=== PATIENT | male | born 1940 ===

== ENCOUNTER 2019-06-03 15:43 | Inpatient (IN) | payer MEDICARE, BC ==
[~2019-06-03] VITALS: Ht 167.6 cm; Wt 48.7 kg
[2019-06-03] MEDS ORDERED: ATORVASTATIN CA80 MG PO (16:27)
[2019-06-03] MEDS ORDERED: ASPIRIN E.C. 8181 MG (16:27)
[2019-06-03] MEDS ORDERED: CLOPIDOGREL PO (16:27)
[2019-06-03] MEDS ORDERED: ISMO 20MG20 MG (16:28)
[2019-06-03] MEDS ORDERED: NITROGLYCERIN0.4 M1 SL (16:28)
[2019-06-03] MEDS ORDERED: REMERON15 MG PO (16:28)
[2019-06-03] MEDS ORDERED: COLESTID 1GM1 G PO (16:29)
[2019-06-03] MEDS ORDERED: ZOFRAN4 M2 PO (16:30)
[2019-06-03] MEDS ORDERED: ATIVAN0.5 MG PO (16:30)
[2019-06-03] MEDS ORDERED: ZESTRIL2.5 M1 PO (17:36)
[2019-06-03 18:43] VITALS: BP 130/72
[2019-06-03 21:47] VITALS: BP 113/66
[2019-06-04 01:31] VITALS: BP 110/66
[2019-06-04 06:21] VITALS: BP 92/54
[2019-06-04 09:03] VITALS: BP 139/77
[2019-06-04 16:13] VITALS: BP 100/61
[2019-06-05 05:53] VITALS: BP 121/72
[2019-06-05 18:00] VITALS: BP 129/51
[2019-06-06 05:41] VITALS: BP 132/77
[2019-06-06 09:45] LABS: ALBUMIN 3.4 g/dL (3.4-4.8); POTASSIUM 4.1 mmol/L (3.5-5.1)
[2019-06-06 09:46] LABS: CALCIUM 9.8 mg/dL (8.3-10.5)
[2019-06-06 09:47] LABS: TOTAL PROTEIN 5.9 g/dL (6.2-8.1)
[2019-06-06 09:49] LABS: TOTAL BILIRUBIN 0.4 mg/dL (0.2-1.2)
[2019-06-06 10:08] LABS: HEMATOCRIT 42.5 % (42.0-52.0); HEMOGLOBIN 13.7 g/dL (13.5-18.0); MEAN CELL VOLUME 96 fl (78-100); MEAN CORPUSCULAR HEMOGLOBIN 31 pg (27-31); MEAN CORPUSCULAR HGB CONC 32 g/dL (33-37); MEAN PLATELET VOLUME 9.4 fl (7.4-10.4); PLATELET COUNT 297 K/mm3 (130-400); RED BLOOD COUNT 4.42 M/mm3 (4.20-5.60); RED CELL DISTRIBUTION WIDTH 13.5 % (11.5-14.5); WHITE BLOOD COUNT 5.5 K/mm3 (4.8-10.8)
[2019-06-06 11:13] LABS: LYMPHOCYTE 18 % (20-51); MONOCYTE 17 % (3-10); NEUTROPHILS 63 % (42-75)
[2019-06-06 12:54] LABS: PH-URINE 5.5 (5.0 - 8.0); URINE APPEARANCE CLEAR; URINE BILIRUBIN NEGATIVE (NEGATIVE); URINE BLOOD NEGATIVE (NEGATIVE); URINE COLOR YELLOW; URINE GLUCOSE NEGATIVE (NEGATIVE); URINE KETONE NEGATIVE (NEGATIVE); URINE LEUKOCYTE ESTERASE NEGATIVE (NEGATIVE); URINE MUCUS PRESENT (NOT PRESENT); URINE NITRATE NEGATIVE (NEGATIVE); URINE PROTEIN(semi-quant) 1+ mg/dL (NEGATIVE); URINE UROBILINOGEN NORMAL (NORMAL)
[2019-06-06 17:29] VITALS: BP 137/57
[2019-06-07 06:03] VITALS: BP 132/72
[2019-06-07 18:07] VITALS: BP 101/47
[2019-06-08 05:55] VITALS: BP 113/72
[2019-06-08 06:03] LABS: HEMATOCRIT 41.6 % (42.0-52.0); HEMOGLOBIN 13.8 g/dL (13.5-18.0); MEAN CELL VOLUME 95 fl (78-100); MEAN CORPUSCULAR HEMOGLOBIN 32 pg (27-31); MEAN CORPUSCULAR HGB CONC 33 g/dL (33-37); MEAN PLATELET VOLUME 9.2 fl (7.4-10.4); PLATELET COUNT 312 K/mm3 (130-400); RED BLOOD COUNT 4.37 M/mm3 (4.20-5.60); RED CELL DISTRIBUTION WIDTH 13.6 % (11.5-14.5)
[2019-06-08 06:11] LABS: POTASSIUM 4.5 mmol/L (3.5-5.1)
[2019-06-08 06:12] LABS: CALCIUM 9.3 mg/dL (8.3-10.5)
[2019-06-08 06:39] LABS: LYMPHOCYTE 16 % (20-51); MONOCYTE 15 % (3-10); NEUTROPHILS 66 % (42-75)
[2019-06-08 08:32] VITALS: BP 113/73
[2019-06-08 18:15] VITALS: BP 125/69
[2019-06-09 06:00] VITALS: BP 112/76
[2019-06-09 18:01] VITALS: BP 96/64
[2019-06-10 06:13] VITALS: BP 109/63
[2019-06-10 17:21] VITALS: BP 96/58
[2019-06-11 06:07] VITALS: BP 100/64
[2019-06-11 17:12] VITALS: BP 95/54
[2019-06-12 06:00] VITALS: BP 143/80
[2019-06-12 16:28] VITALS: BP 91/47
[2019-06-13 05:56] VITALS: BP 98/56
[2019-06-13 17:39] VITALS: BP 109/59
[2019-06-14 06:19] VITALS: BP 110/79
[2019-06-14 12:54] LABS: EOS # 0.2 (0.04-0.40); EOS % 4.4 % (0.0-4.0); HEMATOCRIT 39.1 % (42.0-52.0); HEMOGLOBIN 12.8 g/dL (13.5-18.0); LYMPH# 1.2 (1.50-4.00); MEAN CELL VOLUME 95 fl (78-100); MEAN CORPUSCULAR HEMOGLOBIN 31 pg (27-31); MEAN CORPUSCULAR HGB CONC 33 g/dL (33-37); MEAN PLATELET VOLUME 8.9 fl (7.4-10.4); MONO # 0.5 (0.20-0.80); NEU # 2.8 (1.40-6.50); PLATELET COUNT 323 K/mm3 (130-400); RED CELL DISTRIBUTION WIDTH 13.2 % (11.5-14.5); WHITE BLOOD COUNT 4.8 K/mm3 (4.8-10.8)
[2019-06-14 13:02] LABS: POTASSIUM 4.6 mmol/L (3.5-5.1)
[2019-06-14 13:03] LABS: CALCIUM 8.6 mg/dL (8.3-10.5)
[2019-06-14 17:10] VITALS: BP 106/61
[2019-06-15 05:21] VITALS: BP 149/53
[2019-06-15 16:25] VITALS: BP 104/54; BP 169/76
[2019-06-16 05:56] VITALS: BP 121/71
[2019-06-16 17:31] VITALS: BP 93/54
[2019-06-17 05:23] VITALS: BP 127/69
[2019-06-17 17:09] VITALS: BP 104/66
[2019-06-18 06:01] VITALS: BP 101/66
[2019-06-18 16:04] VITALS: BP 91/56
[2019-06-18 23:10] VITALS: BP 133/77
[2019-06-18 23:35] VITALS: BP 122/66
[2019-06-19 05:45] VITALS: BP 124/70
[2019-06-19 17:47] VITALS: BP 111/67
[2019-06-20 05:53] VITALS: BP 132/73
[2019-06-20 06:40] VITALS: BP 124/72
[2019-06-20 15:57] VITALS: BP 100/58
[2019-06-21 05:57] VITALS: BP 126/73
[2019-06-21 17:56] VITALS: BP 105/61
[2019-06-21 17:57] VITALS: BP 105/61
[2019-06-22 06:00] VITALS: BP 158/80
[2019-06-22 17:42] VITALS: BP 108/65
[2019-06-22 18:13] VITALS: BP 102/68
[2019-06-23 05:52] VITALS: BP 125/73
[2019-06-23 10:18] LABS: EOS # 0.2 (0.04-0.40); EOS % 3.5 % (0.0-4.0); HEMATOCRIT 38.8 % (42.0-52.0); HEMOGLOBIN 12.7 g/dL (13.5-18.0); LYMPH# 1.3 (1.50-4.00); MEAN CELL VOLUME 93 fl (78-100); MEAN CORPUSCULAR HEMOGLOBIN 30 pg (27-31); MEAN CORPUSCULAR HGB CONC 33 g/dL (33-37); MEAN PLATELET VOLUME 9.1 fl (7.4-10.4); MONO # 0.7 (0.20-0.80); NEU # 3.5 (1.40-6.50); PLATELET COUNT 263 K/mm3 (130-400); RED BLOOD COUNT 4.18 M/mm3 (4.20-5.60); RED CELL DISTRIBUTION WIDTH 13.1 % (11.5-14.5); WHITE BLOOD COUNT 5.7 K/mm3 (4.8-10.8)
[2019-06-23 10:41] VITALS: BP 89/54
[2019-06-23 10:45] LABS: ALBUMIN 3.5 g/dL (3.4-4.8); POTASSIUM 4.5 mmol/L (3.5-5.1); SODIUM 137 mmol/L (136-145)
[2019-06-23 10:46] LABS: CALCIUM 8.8 mg/dL (8.3-10.5)
[2019-06-23 10:47] LABS: GLUCOSE 104 mg/dL (75-110)
[2019-06-23 10:49] LABS: CARBON DIOXIDE 21 mmol/L (23-31); TOTAL BILIRUBIN 0.4 mg/dL (0.2-1.2)
[2019-06-23 10:53] LABS: AST-SGOT 26 U/L (5-34)
[2019-06-23 10:54] LABS: ALT/SGPT 43 U/L (0-55)
[2019-06-23 11:00] VITALS: BP 87/52
[2019-06-23 11:01] LABS: TROPONIN-I < 0.03 ng/mL (<0.030)
[2019-06-23 11:45] VITALS: BP 111/66
[2019-06-23 12:22] LABS: URINE APPEARANCE CLEAR; URINE BILIRUBIN NEGATIVE (NEGATIVE); URINE BLOOD NEGATIVE (NEGATIVE); URINE COLOR YELLOW; URINE GLUCOSE NEGATIVE (NEGATIVE); URINE KETONE NEGATIVE (NEGATIVE); URINE LEUKOCYTE ESTERASE NEGATIVE (NEGATIVE); URINE MUCUS PRESENT (NOT PRESENT); URINE NITRATE NEGATIVE (NEGATIVE); URINE PROTEIN(semi-quant) NEGATIVE (NEGATIVE); URINE UROBILINOGEN NORMAL (NORMAL); URINE WBC 0 /hpf (0-3)
[2019-06-23 13:05] VITALS: BP 111/66
[2019-06-25] MEDS ORDERED: ELIQUIS2.5 MG PO (16:54)
[2019-06-25] MEDS ORDERED: PACERONE200 MG PO (17:01)
[2019-06-25] MEDS ORDERED: MEGESTROL ACETA20 M1 PO (17:03)
== END 2019-06-23 14:30 | disposition short-term general hospital (02) | DRG 947 ==
LOC: MED/SURG 15:43
PROVIDERS: Nurse Practitioner Family; Physician Assistant; ADMIT Nurse Practitioner
DX: R53.81 Other malaise (principal); J18.9 Pneumonia, unspecified organism; E43 Unspecified severe protein-calorie malnutrition; Z68.1 Body mass index [BMI] 19.9 or less, adult; I48.92 Unspecified atrial flutter; I95.9 Hypotension, unspecified; I10 Essential (primary) hypertension; R73.9 Hyperglycemia, unspecified; I25.2 Old myocardial infarction; I25.10 Atherosclerotic heart disease of native coronary artery without angina pectoris; I08.1 Rheumatic disorders of both mitral and tricuspid valves; K21.9 Gastro-esophageal reflux disease without esophagitis; H60.92 Unspecified otitis externa, left ear; F17.210 Nicotine dependence, cigarettes, uncomplicated; Z79.82 Long term (current) use of aspirin; Z88.0 Allergy status to penicillin; Z88.2 Allergy status to sulfonamides; Z88.1 Allergy status to other antibiotic agents
CPT/HCPCS: J7030

== ENCOUNTER 2019-09-13 13:00 | Inpatient (IN) | payer MEDICARE, BC ==
[~2019-09-13] VITALS: Ht 165.1 cm; Wt 55.7 kg
[~2019-09-13 13:00] MED LIST: ASPIRIN E.C. 8181 MG; ATIVAN0.5 MG PO; ATORVASTATIN CA80 MG PO; CLOPIDOGREL PO; COLESTID 1GM1 G PO; ELIQUIS2.5 MG PO; ISMO 20MG20 MG; MEGESTROL ACETA20 M1 PO; NITROGLYCERIN0.4 M1 SL; PACERONE200 MG PO; REMERON15 MG PO; ZESTRIL2.5 M1 PO; ZOFRAN4 M2 PO
[2019-09-13 13:56] VITALS: BP 124/73
[2019-09-13] MEDS ORDERED: TYLENOL EXTRA500 M2 PO (13:57)
[2019-09-13] MEDS ORDERED: ALBUTEROL2.5 MG/3 M IH (13:59)
[2019-09-13] MEDS ORDERED: CORDARONE200 MG/TAB PO (14:02)
[2019-09-13] MEDS ORDERED: VENELEX OINTMEN60 GM TP (14:11)
[2019-09-13] MEDS ORDERED: DULCOLAX5 M1 PO (14:12)
[2019-09-13] MEDS ORDERED: CLOPIDOGREL PO (14:13)
[2019-09-13] MEDS ORDERED: FERROUS SU220 MG/53 PEG (14:16)
[2019-09-13] MEDS ORDERED: EXPECTORAN100 MG/51 PEG (14:19)
[2019-09-13] MEDS ORDERED: LIDODERM1 EACH TP (14:44)
[2019-09-13] MEDS ORDERED: LOPERAMIDE1 MG/7.51 PEG (14:51)
[2019-09-13] MEDS ORDERED: MEGESTROL AC40 MG/ML PEG (14:59)
[2019-09-13] MEDS ORDERED: REGLAN5 M1 PEG (15:01)
[2019-09-13] MEDS ORDERED: LOPRESSOR 225 MG/TAB PEG (15:03)
[2019-09-13] MEDS ORDERED: NYSTATIN 100MU/M1 ML PO (15:04)
[2019-09-13] MEDS ORDERED: ZOFRAN ODT4 MG PO (15:10)
[2019-09-13] MEDS ORDERED: ZOLOFT 50MG50 MG PEG (15:14)
[2019-09-13] MEDS ORDERED: ULTRAM50 M1 PEG (15:15)
[2019-09-13] MEDS ORDERED: COLACE100 M1 PEG (15:16)
[2019-09-13] MEDS ORDERED: PROTONIX40 MG/Pack PEG (15:17)
[2019-09-13] MEDS ORDERED: SENNA8.6 M1 PO (15:17)
[2019-09-13] MEDS ORDERED: INCRUSE EL62.5 MCG/A IH (15:18)
[2019-09-13 15:24] LABS: MEAN CELL VOLUME 99 fl (78-100); MEAN CORPUSCULAR HEMOGLOBIN 30 pg (27-31); MEAN CORPUSCULAR HGB CONC 30 g/dL (33-37); MEAN PLATELET VOLUME 8.3 fl (7.4-10.4); RED BLOOD COUNT 2.37 M/mm3 (4.20-5.60); WHITE BLOOD COUNT 8.2 K/mm3 (4.8-10.8)
[2019-09-13 15:34] LABS: HEMATOCRIT 23.4 % (42.0-52.0); PLATELET COUNT 790 K/mm3 (130-400)
[2019-09-13 15:35] LABS: ALBUMIN 3.1 g/dL (3.4-4.8)
[2019-09-13 15:36] LABS: POTASSIUM 4.5 mmol/L (3.5-5.1)
[2019-09-13 15:38] LABS: TOTAL PROTEIN 5.4 g/dL (6.2-8.1)
[2019-09-13 15:40] LABS: TOTAL BILIRUBIN 0.2 mg/dL (0.2-1.2)
[2019-09-13 15:44] LABS: BAND 3 % (0-10); LYMPHOCYTE 15 % (20-51); MONOCYTE 14 % (3-10); NEUTROPHILS 56 % (42-75)
[2019-09-13 18:09] VITALS: BP 104/63
[2019-09-13 18:54] LABS: PH-URINE 5.5 (5.0 - 8.0); URINE APPEARANCE CLEAR; URINE BILIRUBIN NEGATIVE (NEGATIVE); URINE BLOOD NEGATIVE (NEGATIVE); URINE COLOR YELLOW; URINE GLUCOSE NEGATIVE (NEGATIVE); URINE KETONE NEGATIVE (NEGATIVE); URINE LEUKOCYTE ESTERASE NEGATIVE (NEGATIVE); URINE NITRATE NEGATIVE (NEGATIVE); URINE PROTEIN(semi-quant) TRACE mg/dL (NEGATIVE); URINE UROBILINOGEN NORMAL (NORMAL)
[2019-09-14] VITALS (10 sets, daily range): BP systolic 97–127; BP diastolic 40–73
[2019-09-14 07:59] LABS: HEMATOCRIT 22.9 % (42.0-52.0); HEMOGLOBIN 6.8 g/dL (13.5-18.0)
[2019-09-14 22:22] LABS: MAGNESIUM 2.06 mg/dL (1.60-2.60)
== END 2019-09-14 18:24 | disposition short-term general hospital (02) | DRG 948 ==
LOC: MED/SURG 13:00
PROVIDERS: Physician Assistant; ADMIT Nurse Practitioner Primary Care
DX: R53.81 Other malaise (principal); E46 Unspecified protein-calorie malnutrition; I25.719 Atherosclerosis of autologous vein coronary artery bypass graft(s) with unspecified angina pectoris; K92.2 Gastrointestinal hemorrhage, unspecified; I48.91 Unspecified atrial fibrillation; R13.10 Dysphagia, unspecified; K21.9 Gastro-esophageal reflux disease without esophagitis; G47.33 Obstructive sleep apnea (adult) (pediatric); D64.9 Anemia, unspecified; I25.2 Old myocardial infarction; Z68.23 Body mass index [BMI] 23.0-23.9, adult; Z79.82 Long term (current) use of aspirin; Z79.01 Long term (current) use of anticoagulants; Z79.02 Long term (current) use of antithrombotics/antiplatelets; Z95.1 Presence of aortocoronary bypass graft; Z93.1 Gastrostomy status; Z87.891 Personal history of nicotine dependence; Z88.2 Allergy status to sulfonamides; Z88.0 Allergy status to penicillin; Z88.1 Allergy status to other antibiotic agents
CPT/HCPCS: C9113; J1071; J1940

== ENCOUNTER 2019-09-14 17:09 | Inpatient (IN) | payer MEDICARE, BC ==
[2019-09-14] VITALS (7 sets, daily range): BP systolic 129–136; BP diastolic 70–80
[~2019-09-14] VITALS: Ht 154.9 cm; Wt 52.8 kg
[~2019-09-14 17:09] MED LIST changes: +ALBUTEROL2.5 MG/3 M IH; +COLACE100 M1 PEG; +CORDARONE200 MG/TAB PO; +DULCOLAX5 M1 PO; +EXPECTORAN100 MG/51 PEG; +FERROUS SU220 MG/53 PEG; +INCRUSE EL62.5 MCG/A IH; +LIDODERM1 EACH TP; +LOPERAMIDE1 MG/7.51 PEG; +LOPRESSOR 225 MG/TAB PEG; +MEGESTROL AC40 MG/ML PEG; +NYSTATIN 100MU/M1 ML PO; +PROTONIX40 MG/Pack PEG; +REGLAN5 M1 PEG; +SENNA8.6 M1 PO; +TYLENOL EXTRA500 M2 PO; +ULTRAM50 M1 PEG; +VENELEX OINTMEN60 GM TP; +ZOFRAN ODT4 MG PO; +ZOLOFT 50MG50 MG PEG
[2019-09-14 22:08] LABS: HEMOGLOBIN 10.7 g/dL (13.5-18.0)
[2019-09-15 02:44] VITALS: BP 122/73
[2019-09-15 05:43] VITALS: BP 122/71
[2019-09-15 09:53] VITALS: BP 144/79
[2019-09-15 14:02] VITALS: BP 99/64
[2019-09-15 17:02] VITALS: BP 125/74
[2019-09-15 22:37] VITALS: BP 104/66
[2019-09-16 01:35] VITALS: BP 131/78
[2019-09-16 05:50] VITALS: BP 144/75
[2019-09-16 07:53] LABS: HEMATOCRIT 34.6 % (42.0-52.0); HEMOGLOBIN 10.8 g/dL (13.5-18.0); MEAN CELL VOLUME 98 fl (78-100); MEAN CORPUSCULAR HEMOGLOBIN 31 pg (27-31); MEAN CORPUSCULAR HGB CONC 31 g/dL (33-37); MEAN PLATELET VOLUME 8.6 fl (7.4-10.4); PLATELET COUNT 420 K/mm3 (130-400); RED BLOOD COUNT 3.53 M/mm3 (4.20-5.60); WHITE BLOOD COUNT 7.8 K/mm3 (4.8-10.8)
[2019-09-16 08:06] LABS: CALCIUM 7.7 mg/dL (8.3-10.5)
[2019-09-16 08:58] LABS: LYMPHOCYTE 14 % (20-51); MONOCYTE 12 % (3-10); NEUTROPHILS 71 % (42-75)
[2019-09-16 10:00] VITALS: BP 105/65
[2019-09-16 10:26] LABS: URINE APPEARANCE CLEAR; URINE COLOR YELLOW
[2019-09-16 10:27] LABS: PH-URINE 8.5 (5.0 - 8.0); URINE BILIRUBIN NEGATIVE (NEGATIVE); URINE BLOOD 50 ery/uL (NEGATIVE); URINE GLUCOSE NEGATIVE (NEGATIVE); URINE KETONE NEGATIVE (NEGATIVE); URINE LEUKOCYTE ESTERASE NEGATIVE (NEGATIVE); URINE NITRATE NEGATIVE (NEGATIVE); URINE PROTEIN(semi-quant) NEGATIVE (NEGATIVE); URINE UROBILINOGEN 1 mg/dL (NORMAL); URINE WBC 0-1 /hpf (0-3)
[2019-09-16 14:00] VITALS: BP 95/58
[2019-09-16 17:21] VITALS: BP 103/65
[2019-09-16 22:02] VITALS: BP 111/73
[2019-09-17] VITALS (8 sets, daily range): BP systolic 80–116; BP diastolic 7–75
[2019-09-18] VITALS (7 sets, daily range): BP systolic 92–143; BP diastolic 58–82
[2019-09-18 07:47] LABS: EOS # 0.4 (0.04-0.40); HEMATOCRIT 37.9 % (42.0-52.0); HEMOGLOBIN 11.5 g/dL (13.5-18.0); LYMPH# 0.8 (1.50-4.00); MEAN CELL VOLUME 100 fl (78-100); MEAN CORPUSCULAR HEMOGLOBIN 30 pg (27-31); MEAN CORPUSCULAR HGB CONC 30 g/dL (33-37); MEAN PLATELET VOLUME 8.4 fl (7.4-10.4); MONO # 0.6 (0.20-0.80); NEU # 4.8 (1.40-6.50); PLATELET COUNT 366 K/mm3 (130-400); RED BLOOD COUNT 3.78 M/mm3 (4.20-5.60); RED CELL DISTRIBUTION WIDTH 17.3 % (11.5-14.5); WHITE BLOOD COUNT 6.7 K/mm3 (4.8-10.8)
[2019-09-18 08:09] LABS: EOS % 5.4 % (0.0-4.0)
[2019-09-18 08:15] LABS: POTASSIUM 4.5 mmol/L (3.5-5.1)
[2019-09-19 02:23] VITALS: BP 97/62
[2019-09-19 06:05] VITALS: BP 99/62
[2019-09-19 09:52] VITALS: BP 99/59
[2019-09-19 14:20] VITALS: BP 98/58
[2019-09-19 18:20] VITALS: BP 102/63
[2019-09-19 21:42] VITALS: BP 114/71
[2019-09-20 02:23] VITALS: BP 115/76
[2019-09-20 05:54] VITALS: BP 108/70
[2019-09-20 06:01] LABS: EOS # 0.3 (0.04-0.40); HEMATOCRIT 35.1 % (42.0-52.0); HEMOGLOBIN 10.7 g/dL (13.5-18.0); MEAN CELL VOLUME 100 fl (78-100); MEAN CORPUSCULAR HEMOGLOBIN 31 pg (27-31); MEAN CORPUSCULAR HGB CONC 31 g/dL (33-37); MEAN PLATELET VOLUME 8.8 fl (7.4-10.4); MONO # 0.7 (0.20-0.80); NEU # 3.6 (1.40-6.50); PLATELET COUNT 339 K/mm3 (130-400); RED CELL DISTRIBUTION WIDTH 16.6 % (11.5-14.5); WHITE BLOOD COUNT 5.6 K/mm3 (4.8-10.8)
[2019-09-20 06:06] LABS: POTASSIUM 4.8 mmol/L (3.5-5.1)
[2019-09-20 06:17] LABS: EOS % 5.9 % (0.0-4.0)
== END 2019-09-20 08:28 | disposition swing bed (61) | DRG 811 ==
LOC: MED/SURG 17:09
PROVIDERS: Internal Medicine; Nurse Practitioner Primary Care; ADMIT Physician Assistant
PROC: 0DJ08ZZ Inspection of Upper Intestinal Tract, Via Natural or Artificial Opening Endoscopic (ICD-10-PCS; principal; 2019-09-15)
DX: D50.0 Iron deficiency anemia secondary to blood loss (chronic) (principal); I50.21 Acute systolic (congestive) heart failure; K92.1 Melena; E46 Unspecified protein-calorie malnutrition; J98.11 Atelectasis; N39.0 Urinary tract infection, site not specified; J44.9 Chronic obstructive pulmonary disease, unspecified; I25.119 Atherosclerotic heart disease of native coronary artery with unspecified angina pectoris; F41.9 Anxiety disorder, unspecified; I48.91 Unspecified atrial fibrillation; M19.90 Unspecified osteoarthritis, unspecified site; K21.9 Gastro-esophageal reflux disease without esophagitis; G47.33 Obstructive sleep apnea (adult) (pediatric); I25.2 Old myocardial infarction; R33.9 Retention of urine, unspecified; F32.9 Major depressive disorder, single episode, unspecified; I95.9 Hypotension, unspecified; R63.0 Anorexia; R13.10 Dysphagia, unspecified; R53.81 Other malaise; Z79.02 Long term (current) use of antithrombotics/antiplatelets; Z79.82 Long term (current) use of aspirin; Z79.01 Long term (current) use of anticoagulants; Z79.1 Long term (current) use of non-steroidal anti-inflammatories (NSAID); Z79.891 Long term (current) use of opiate analgesic; Z93.1 Gastrostomy status; Z95.1 Presence of aortocoronary bypass graft; Z87.891 Personal history of nicotine dependence; Z88.2 Allergy status to sulfonamides; Z88.1 Allergy status to other antibiotic agents; Z88.0 Allergy status to penicillin
CPT/HCPCS: 00731; C9113; J0696; J1940; J2704; J7120; P9016; Q9967

== ENCOUNTER 2019-09-20 08:28 | Inpatient (IN) | payer MEDICARE, BC ==
[~2019-09-20] VITALS: Ht 154.9 cm; Wt 53.1 kg
[2019-09-20 14:20] VITALS: BP 11/64
[2019-09-20 14:47] VITALS: BP 100/64
[2019-09-20 17:41] VITALS: BP 104/66
[2019-09-21 06:23] VITALS: BP 110/66
[2019-09-21 17:12] VITALS: BP 109/63
[2019-09-22 05:56] LABS: EOS # 0.3 (0.04-0.40); HEMATOCRIT 33.9 % (42.0-52.0); HEMOGLOBIN 10.2 g/dL (13.5-18.0); LYMPH# 0.9 (1.50-4.00); MEAN CELL VOLUME 101 fl (78-100); MEAN CORPUSCULAR HEMOGLOBIN 30 pg (27-31); MEAN CORPUSCULAR HGB CONC 30 g/dL (33-37); MEAN PLATELET VOLUME 8.7 fl (7.4-10.4); MONO # 0.7 (0.20-0.80); NEU # 4.2 (1.40-6.50); PLATELET COUNT 311 K/mm3 (130-400); RED BLOOD COUNT 3.37 M/mm3 (4.20-5.60); RED CELL DISTRIBUTION WIDTH 16.4 % (11.5-14.5); WHITE BLOOD COUNT 6.2 K/mm3 (4.8-10.8)
[2019-09-22 06:03] VITALS: BP 106/62
[2019-09-22 06:06] LABS: EOS % 5.5 % (0.0-4.0)
[2019-09-22 06:07] LABS: POTASSIUM 4.7 mmol/L (3.5-5.1)
[2019-09-22 06:08] LABS: CALCIUM 7.8 mg/dL (8.3-10.5)
[2019-09-22 17:06] VITALS: BP 108/70
[2019-09-23 05:35] VITALS: BP 120/73
[2019-09-23 17:09] VITALS: BP 97/58
[2019-09-24 05:29] VITALS: BP 106/64
[2019-09-24 07:18] LABS: HEMATOCRIT 33.7 % (42.0-52.0); HEMOGLOBIN 10.2 g/dL (13.5-18.0); MEAN CELL VOLUME 101 fl (78-100); MEAN CORPUSCULAR HEMOGLOBIN 31 pg (27-31); MEAN CORPUSCULAR HGB CONC 30 g/dL (33-37); MEAN PLATELET VOLUME 8.9 fl (7.4-10.4); PLATELET COUNT 306 K/mm3 (130-400); RED BLOOD COUNT 3.33 M/mm3 (4.20-5.60); RED CELL DISTRIBUTION WIDTH 16.7 % (11.5-14.5)
[2019-09-24 08:15] LABS: LYMPHOCYTE 10 % (20-51); MONOCYTE 9 % (3-10); NEUTROPHILS 75 % (42-75)
[2019-09-24 08:43] LABS: POTASSIUM 4.5 mmol/L (3.5-5.1)
[2019-09-24 17:16] VITALS: BP 103/62
[2019-09-25 05:55] VITALS: BP 98/61
[2019-09-25 16:52] VITALS: BP 95/58
[2019-09-25 19:50] VITALS: BP 107/66
[2019-09-26 05:45] VITALS: BP 109/58
[2019-09-26 17:25] VITALS: BP 112/69
[2019-09-27 05:43] VITALS: BP 135/72
[2019-09-27 17:06] VITALS: BP 93/53
[2019-09-27 21:15] VITALS: BP 117/67
[2019-09-28 05:24] VITALS: BP 120/67
[2019-09-28 09:53] LABS: GLUCOSE 101 mg/dL (75-110)
[2019-09-28 10:12] LABS: HEMATOCRIT 33.3 % (42.0-52.0); MEAN CELL VOLUME 101 fl (78-100); MEAN CORPUSCULAR HEMOGLOBIN 30 pg (27-31); MEAN CORPUSCULAR HGB CONC 30 g/dL (33-37); MEAN PLATELET VOLUME 9.6 fl (7.4-10.4); PLATELET COUNT 364 K/mm3 (130-400); RED CELL DISTRIBUTION WIDTH 17.3 % (11.5-14.5); WHITE BLOOD COUNT 14.5 K/mm3 (4.8-10.8)
[2019-09-28 10:15] LABS: POTASSIUM 4.5 mmol/L (3.5-5.1); SODIUM 133 mmol/L (136-145)
[2019-09-28 10:17] LABS: CALCIUM 8.2 mg/dL (8.3-10.5)
[2019-09-28 10:19] LABS: CARBON DIOXIDE 23 mmol/L (23-31)
[2019-09-28 10:25] LABS: TROPONIN-I < 0.03 ng/mL (<0.030)
[2019-09-28 12:03] LABS: LYMPHOCYTE 7 % (20-51); MONOCYTE 12 % (3-10); NEUTROPHILS 80 % (42-75)
[2019-09-28 12:08] LABS: URINE APPEARANCE CLOUDY; URINE COLOR YELLOW
[2019-09-28 12:09] LABS: URINE BILIRUBIN 1+ (NEGATIVE); URINE BLOOD TRACE (NEGATIVE); URINE GLUCOSE NEGATIVE (NEGATIVE); URINE KETONE NEGATIVE (NEGATIVE); URINE LEUKOCYTE ESTERASE 1+ (NEGATIVE); URINE NITRATE POSITIVE (NEGATIVE); URINE PROTEIN(semi-quant) 1+ mg/dL (NEGATIVE); URINE UROBILINOGEN NORMAL (NORMAL)
[2019-09-28 14:34] VITALS: BP 100/61
[2019-09-28 18:29] VITALS: BP 107/59
[2019-09-29 05:55] LABS: HEMATOCRIT 30.1 % (42.0-52.0); HEMOGLOBIN 9.1 g/dL (13.5-18.0); MEAN CELL VOLUME 101 fl (78-100); MEAN CORPUSCULAR HEMOGLOBIN 31 pg (27-31); MEAN CORPUSCULAR HGB CONC 30 g/dL (33-37); MEAN PLATELET VOLUME 9.4 fl (7.4-10.4); PLATELET COUNT 349 K/mm3 (130-400); RED BLOOD COUNT 2.98 M/mm3 (4.20-5.60); RED CELL DISTRIBUTION WIDTH 16.9 % (11.5-14.5); WHITE BLOOD COUNT 14.1 K/mm3 (4.8-10.8)
[2019-09-29 06:00] VITALS: BP 108/65
[2019-09-29 06:48] LABS: LYMPHOCYTE 4 % (20-51); MONOCYTE 8 % (3-10); NEUTROPHILS 88 % (42-75); POLYCHROMASIA 1+
[2019-09-29 06:49] LABS: OVALOCYTES 1+; TOXIC GRANULATION PRESENT
[2019-09-29 08:35] VITALS: BP 118/58
[2019-09-29 17:11] VITALS: BP 108/67
[2019-09-30 05:51] VITALS: BP 122/67
[2019-09-30 12:03] LABS: HEMOGLOBIN 8.7 g/dL (13.5-18.0); MEAN CELL VOLUME 100 fl (78-100); MEAN CORPUSCULAR HEMOGLOBIN 30 pg (27-31); MEAN CORPUSCULAR HGB CONC 30 g/dL (33-37); MEAN PLATELET VOLUME 9.2 fl (7.4-10.4); PLATELET COUNT 403 K/mm3 (130-400); RED BLOOD COUNT 2.89 M/mm3 (4.20-5.60); RED CELL DISTRIBUTION WIDTH 16.8 % (11.5-14.5); WHITE BLOOD COUNT 10.3 K/mm3 (4.8-10.8)
[2019-09-30 12:12] LABS: LYMPHOCYTE 9 % (20-51); MONOCYTE 11 % (3-10); NEUTROPHILS 78 % (42-75); POLYCHROMASIA 1+
[2019-09-30 12:13] LABS: POTASSIUM 4.7 mmol/L (3.5-5.1)
[2019-09-30 12:15] LABS: CALCIUM 8.1 mg/dL (8.3-10.5)
[2019-09-30 16:18] VITALS: BP 95/61
[2019-10-01 05:21] VITALS: BP 105/57
[2019-10-01 16:48] VITALS: BP 111/65
[2019-10-02 05:27] VITALS: BP 117/76
[2019-10-02 17:22] VITALS: BP 122/68
[2019-10-02 22:22] VITALS: BP 144/77
[2019-10-03 06:11] VITALS: BP 123/73
[2019-10-03 13:36] LABS: HEMATOCRIT 29.6 % (42.0-52.0); HEMOGLOBIN 8.9 g/dL (13.5-18.0); MEAN CELL VOLUME 99 fl (78-100); MEAN CORPUSCULAR HEMOGLOBIN 30 pg (27-31); MEAN CORPUSCULAR HGB CONC 30 g/dL (33-37); MEAN PLATELET VOLUME 8.8 fl (7.4-10.4); PLATELET COUNT 484 K/mm3 (130-400); RED BLOOD COUNT 2.98 M/mm3 (4.20-5.60); RED CELL DISTRIBUTION WIDTH 16.8 % (11.5-14.5); WHITE BLOOD COUNT 5.9 K/mm3 (4.8-10.8)
[2019-10-03 13:48] LABS: POTASSIUM 4.8 mmol/L (3.5-5.1)
[2019-10-03 13:49] LABS: CALCIUM 8.1 mg/dL (8.3-10.5)
[2019-10-03 13:50] LABS: LYMPHOCYTE 13 % (20-51); MONOCYTE 18 % (3-10); NEUTROPHILS 64 % (42-75); POLYCHROMASIA 1+
[2019-10-03 13:54] LABS: TOTAL BILIRUBIN 0.1 mg/dL (0.2-1.2)
[2019-10-03 17:19] VITALS: BP 86/58
[2019-10-03 19:30] VITALS: BP 105/60
[2019-10-04 06:03] VITALS: BP 110/65
[2019-10-04 17:41] VITALS: BP 85/52
[2019-10-04 21:00] VITALS: BP 94/51
[2019-10-05 05:44] VITALS: BP 132/72
[2019-10-05 16:12] VITALS: BP 106/65
[2019-10-06 05:37] VITALS: BP 131/75
[2019-10-06 09:22] LABS: EOS # 0.3 (0.04-0.40); HEMATOCRIT 32.2 % (42.0-52.0); HEMOGLOBIN 9.7 g/dL (13.5-18.0); LYMPH# 1.4 (1.50-4.00); MEAN CELL VOLUME 100 fl (78-100); MEAN CORPUSCULAR HEMOGLOBIN 30 pg (27-31); MEAN CORPUSCULAR HGB CONC 30 g/dL (33-37); MEAN PLATELET VOLUME 8.3 fl (7.4-10.4); MONO # 0.8 (0.20-0.80); NEU # 4.1 (1.40-6.50); RED BLOOD COUNT 3.23 M/mm3 (4.20-5.60); RED CELL DISTRIBUTION WIDTH 17.7 % (11.5-14.5); WHITE BLOOD COUNT 6.8 K/mm3 (4.8-10.8)
[2019-10-06 09:26] LABS: PLATELET COUNT 520 K/mm3 (130-400)
[2019-10-06 09:33] LABS: ALBUMIN 3.2 g/dL (3.4-4.8); POTASSIUM 4.3 mmol/L (3.5-5.1); SODIUM 137 mmol/L (136-145)
[2019-10-06 09:34] LABS: CALCIUM 8.1 mg/dL (8.3-10.5)
[2019-10-06 09:36] LABS: GLUCOSE 82 mg/dL (75-110); TOTAL PROTEIN 6.3 g/dL (6.2-8.1)
[2019-10-06 09:37] LABS: CARBON DIOXIDE 21 mmol/L (23-31); TOTAL BILIRUBIN 0.2 mg/dL (0.2-1.2)
[2019-10-06 09:41] LABS: AST-SGOT 26 U/L (5-34)
[2019-10-06 09:42] LABS: ALT/SGPT 62 U/L (0-55)
[2019-10-06 09:53] LABS: TROPONIN-I < 0.03 ng/mL (<0.030)
[2019-10-06 12:15] LABS: URINE APPEARANCE CLEAR; URINE BILIRUBIN NEGATIVE (NEGATIVE); URINE BLOOD NEGATIVE (NEGATIVE); URINE COLOR YELLOW; URINE GLUCOSE NEGATIVE (NEGATIVE); URINE KETONE NEGATIVE (NEGATIVE); URINE LEUKOCYTE ESTERASE NEGATIVE (NEGATIVE); URINE NITRATE NEGATIVE (NEGATIVE); URINE PROTEIN(semi-quant) TRACE mg/dL (NEGATIVE); URINE UROBILINOGEN NORMAL (NORMAL); URINE WBC 0-1 /hpf (0-3)
[2019-10-06 17:49] VITALS: BP 122/66
[2019-10-07 06:05] VITALS: BP 115/69
[2019-10-07 16:07] VITALS: BP 120/63
[2019-10-08 06:23] VITALS: BP 132/72
[2019-10-08 17:20] VITALS: BP 129/68
[2019-10-09 06:04] VITALS: BP 111/67
[2019-10-09 17:00] VITALS: BP 106/66
[2019-10-10 05:42] VITALS: BP 127/66
[2019-10-10 09:06] VITALS: BP 126/73
[2019-10-10 17:09] VITALS: BP 96/55
[2019-10-10 21:59] VITALS: BP 115/68
[2019-10-11 05:19] VITALS: BP 149/76
[2019-10-11 07:14] LABS: VITAMIN E 10.6 mg/L (())
[2019-10-11 08:01] VITALS: BP 118/63
[2019-10-11 16:23] VITALS: BP 104/67
[2019-10-12 06:04] VITALS: BP 126/71
[2019-10-12 17:29] VITALS: BP 105/66
[2019-10-13 05:56] VITALS: BP 132/70
[2019-10-13 16:17] VITALS: BP 114/67
[2019-10-14 06:09] VITALS: BP 145/81
[2019-10-14 16:01] VITALS: BP 129/75
[2019-10-15 05:51] VITALS: BP 118/71
[2019-10-15 17:29] VITALS: BP 123/75
[2019-10-16 05:46] VITALS: BP 135/72
[2019-10-16 18:08] VITALS: BP 109/66
[2019-10-17 05:18] VITALS: BP 134/80
[2019-10-17 16:05] VITALS: BP 118/75
[2019-10-18 05:42] VITALS: BP 127/75
[2019-10-18 17:09] VITALS: BP 109/69
[2019-10-19 06:01] VITALS: BP 126/65
[2019-10-19 18:19] VITALS: BP 88/56
[2019-10-20 05:47] VITALS: BP 109/66
[2019-10-20 14:19] VITALS: BP 93/58
[2019-10-20 17:22] VITALS: BP 101/66
[2019-10-21 06:10] VITALS: BP 144/79
[2019-10-21 07:47] LABS: HEMATOCRIT 35.9 % (42.0-52.0); HEMOGLOBIN 11.1 g/dL (13.5-18.0); MEAN CELL VOLUME 98 fl (78-100); MEAN CORPUSCULAR HEMOGLOBIN 30 pg (27-31); MEAN CORPUSCULAR HGB CONC 31 g/dL (33-37); MEAN PLATELET VOLUME 9.2 fl (7.4-10.4); PLATELET COUNT 310 K/mm3 (130-400); RED BLOOD COUNT 3.67 M/mm3 (4.20-5.60); RED CELL DISTRIBUTION WIDTH 16.4 % (11.5-14.5); WHITE BLOOD COUNT 6.9 K/mm3 (4.8-10.8)
[2019-10-21 08:09] LABS: POTASSIUM 4.8 mmol/L (3.5-5.1)
[2019-10-21 08:27] LABS: LYMPHOCYTE 11 % (20-51); MONOCYTE 11 % (3-10); NEUTROPHILS 73 % (42-75)
[2019-10-21 18:00] VITALS: BP 98/59
[2019-10-22 06:00] VITALS: BP 130/71
[2019-10-22 17:20] VITALS: BP 115/70
[2019-10-23 06:02] VITALS: BP 123/69
[2019-10-23 17:17] VITALS: BP 112/72
[2019-10-24 06:07] VITALS: BP 125/72
[2019-10-24 17:08] VITALS: BP 116/75
[2019-10-25 06:08] VITALS: BP 131/71
[2019-10-25 17:45] VITALS: BP 96/60
[2019-10-26 05:09] VITALS: BP 133/73
[2019-10-26 18:08] VITALS: BP 114/64
[2019-10-27 05:52] VITALS: BP 126/80
[2019-10-27 18:00] VITALS: BP 103/63
[2019-10-28 05:37] VITALS: BP 133/71
[2019-10-28 18:11] VITALS: BP 107/67
[2019-10-29 05:31] VITALS: BP 125/69
[2019-10-29 18:06] VITALS: BP 97/63
[2019-10-30 06:06] VITALS: BP 102/65
[2019-10-30 09:15] VITALS: BP 106/65
[2019-10-30 17:30] VITALS: BP 92/56
[2019-10-31 06:03] VITALS: BP 118/76
[2019-10-31 17:20] VITALS: BP 109/67
[2019-11-01 06:08] VITALS: BP 138/74
[2019-11-01 18:00] VITALS: BP 106/62
[2019-11-02 05:54] VITALS: BP 128/82
[2019-11-02 18:07] VITALS: BP 113/70
[2019-11-03 06:10] VITALS: BP 129/76
[2019-11-03 18:02] VITALS: BP 109/69
[2019-11-04 06:02] VITALS: BP 139/79
[2019-11-04 17:34] VITALS: BP 111/71
[2019-11-05 06:02] VITALS: BP 133/75
[2019-11-05 16:37] VITALS: BP 119/70
[2019-11-06 05:24] VITALS: BP 143/69
[2019-11-06 17:57] VITALS: BP 149/73
[2019-11-07 06:09] VITALS: BP 143/74
[2019-11-07 17:21] VITALS: BP 106/66
[2019-11-08 05:56] VITALS: BP 145/80
[2019-11-08 17:15] VITALS: BP 116/74
[2019-11-09 05:31] VITALS: BP 142/73
[2019-11-09 18:24] VITALS: BP 97/56
[2019-11-10 06:15] VITALS: BP 153/76
[2019-11-10 17:05] VITALS: BP 111/73
[2019-11-11 06:10] VITALS: BP 128/74
[2019-11-11 16:57] VITALS: BP 116/73
[2019-11-12 05:55] VITALS: BP 109/68
[2019-11-12 17:04] VITALS: BP 119/68
[2019-11-13 05:50] VITALS: BP 118/70
[2019-11-13 18:22] VITALS: BP 113/72
[2019-11-14 05:54] VITALS: BP 120/88
[2019-11-14] MEDS ORDERED: INCRUSE EL62.5 MCG/A IH (14:10)
[2019-11-14] MEDS ORDERED: ALBUTEROL2.5 MG/3 M IH (14:10)
[2019-11-14] MEDS ORDERED: CORDARONE200 MG/TAB PO (14:11)
[2019-11-14] MEDS ORDERED: CLOPIDOGREL PO (14:11)
[2019-11-14] MEDS ORDERED: ATORVASTATIN CA80 MG PO (14:11)
[2019-11-14] MEDS ORDERED: NITROGLYCERIN0.4 M1 SL (14:12)
[2019-11-14] MEDS ORDERED: LOPRESSOR 225 MG/TAB PEG (14:12)
[2019-11-14] MEDS ORDERED: ULTRAM50 M1 PO (14:13)
[2019-11-14] MEDS ORDERED: TYLENOL EXTRA500 M2 PO (14:13)
[2019-11-14] MEDS ORDERED: ASPIRIN E.C. 8181 MG PO (14:13)
[2019-11-14] MEDS ORDERED: ATIVAN0.5 MG PO (14:14)
[2019-11-14] MEDS ORDERED: ZOLOFT 50MG50 MG PO (14:14)
[2019-11-14] MEDS ORDERED: DEPO-TESTOS200 MG/M1 IM (14:16)
[2019-11-14] MEDS ORDERED: FAMOTIDINE20 MG PO (14:16)
[2019-11-14] MEDS ORDERED: MUPIROCIN2% TP (14:17)
[2019-11-14] MEDS ORDERED: VITAMIN D325 MC1 PO (14:17)
[2019-11-14] MEDS ORDERED: MEGESTROL AC40 MG/ML PO (14:18)
== END 2019-11-14 15:02 | disposition home or self-care (01) | DRG 948 ==
LOC: MED/SURG 08:28
PROVIDERS: Family Medicine; Internal Medicine; Nurse Practitioner Family; Physician Assistant; ADMIT Nurse Practitioner Primary Care
DX: R53.81 Other malaise (principal); E46 Unspecified protein-calorie malnutrition; J90 Pleural effusion, not elsewhere classified; N39.0 Urinary tract infection, site not specified; I48.91 Unspecified atrial fibrillation; R13.10 Dysphagia, unspecified; K21.9 Gastro-esophageal reflux disease without esophagitis; I50.9 Heart failure, unspecified; I25.119 Atherosclerotic heart disease of native coronary artery with unspecified angina pectoris; F32.9 Major depressive disorder, single episode, unspecified; D64.9 Anemia, unspecified; L89.819 Pressure ulcer of head, unspecified stage; R33.9 Retention of urine, unspecified; R32 Unspecified urinary incontinence; R19.7 Diarrhea, unspecified; I25.2 Old myocardial infarction; Z68.22 Body mass index [BMI] 22.0-22.9, adult; G47.33 Obstructive sleep apnea (adult) (pediatric); Z79.82 Long term (current) use of aspirin; Z79.891 Long term (current) use of opiate analgesic; Z93.1 Gastrostomy status; Z95.1 Presence of aortocoronary bypass graft; Z87.891 Personal history of nicotine dependence; Z88.2 Allergy status to sulfonamides; Z88.1 Allergy status to other antibiotic agents; Z88.0 Allergy status to penicillin
CPT/HCPCS: J1071; J2543; Q9967

== ENCOUNTER 2019-12-08 14:00 | Outpatient (RCR) | payer MEDICARE, BC ==
[~2019-12-08 14:00] MED LIST changes: +ASPIRIN E.C. 8181 MG PO; +DEPO-TESTOS200 MG/M1 IM; +FAMOTIDINE20 MG PO; +MEGESTROL AC40 MG/ML PO; +MUPIROCIN2% TP; +ULTRAM50 M1 PO; +VITAMIN D325 MC1 PO; +ZOLOFT 50MG50 MG PO
== END 2019-12-08 15:00 | disposition home or self-care (01) ==
LOC: CARDREHAB 14:00
DX: Z48.812 Encounter for surgical aftercare following surgery on the circulatory system (principal); Z95.1 Presence of aortocoronary bypass graft; I25.2 Old myocardial infarction; I48.91 Unspecified atrial fibrillation

== ENCOUNTER → 2019-12-21 | Outpatient (CLI) | payer MEDICARE, BC ==
[2019-12-21 13:49] LABS: POTASSIUM 4.3 mmol/L (3.5-5.1)
[2019-12-21 13:50] LABS: CALCIUM 8.9 mg/dL (8.3-10.5)
[2019-12-21 13:51] LABS: EOS # 0.2 (0.04-0.40); EOS % 1.8 % (0.0-4.0); HEMATOCRIT 45.8 % (42.0-52.0); HEMOGLOBIN 14.5 g/dL (13.5-18.0); LYMPH# 1.6 (1.50-4.00); MEAN CELL VOLUME 89 fl (78-100); MEAN CORPUSCULAR HEMOGLOBIN 28 pg (27-31); MEAN CORPUSCULAR HGB CONC 32 g/dL (33-37); MEAN PLATELET VOLUME 9.5 fl (7.4-10.4); MONO # 1.2 (0.20-0.80); NEU # 8.9 (1.40-6.50); PLATELET COUNT 371 K/mm3 (130-400); RED BLOOD COUNT 5.14 M/mm3 (4.20-5.60); RED CELL DISTRIBUTION WIDTH 17.5 % (11.5-14.5)
== END ==
LOC: LAB 10:40
DX: I95.9 Hypotension, unspecified (principal); Z95.1 Presence of aortocoronary bypass graft

== ENCOUNTER 2019-12-23 14:33 | Emergency (ER) | payer MEDICARE, BC ==
[2019-12-23 15:21] LABS: EOS # 0.2 (0.04-0.40); EOS % 2.3 % (0.0-4.0); HEMATOCRIT 44.1 % (42.0-52.0); HEMOGLOBIN 13.7 g/dL (13.5-18.0); LYMPH# 1.3 (1.50-4.00); MEAN CELL VOLUME 90 fl (78-100); MEAN CORPUSCULAR HEMOGLOBIN 28 pg (27-31); MEAN CORPUSCULAR HGB CONC 31 g/dL (33-37); MONO # 0.9 (0.20-0.80); PLATELET COUNT 312 K/mm3 (130-400); RED BLOOD COUNT 4.92 M/mm3 (4.20-5.60); RED CELL DISTRIBUTION WIDTH 17.4 % (11.5-14.5); WHITE BLOOD COUNT 8.5 K/mm3 (4.8-10.8)
[2019-12-23 15:30] LABS: ALBUMIN 3.2 g/dL (3.4-4.8)
[2019-12-23 15:31] LABS: POTASSIUM 4.2 mmol/L (3.5-5.1); SODIUM 138 mmol/L (136-145)
[2019-12-23 15:32] LABS: CALCIUM 8.5 mg/dL (8.3-10.5)
[2019-12-23 15:33] LABS: GLUCOSE 81 mg/dL (75-110); TOTAL PROTEIN 6.2 g/dL (6.2-8.1)
[2019-12-23 15:34] LABS: CARBON DIOXIDE 19 mmol/L (23-31)
[2019-12-23 15:35] LABS: TOTAL BILIRUBIN 0.5 mg/dL (0.2-1.2)
[2019-12-23 15:38] LABS: AST-SGOT 138 U/L (5-34)
[2019-12-23 15:39] LABS: ALT/SGPT 213 U/L (0-55)
[2019-12-23 15:40] LABS: MAGNESIUM 1.85 mg/dL (1.60-2.60)
[2019-12-23 15:48] LABS: TROPONIN-I < 0.03 ng/mL (<0.030)
[2019-12-23 16:48] VITALS: BP 121/70
== END 2019-12-23 16:51 | disposition home or self-care (01) ==
LOC: ED 14:33
PROVIDERS: Nurse Practitioner Family
DX: I20.8 Other forms of angina pectoris (principal); I50.9 Heart failure, unspecified; I95.9 Hypotension, unspecified; K21.9 Gastro-esophageal reflux disease without esophagitis; Z87.891 Personal history of nicotine dependence; Z95.1 Presence of aortocoronary bypass graft; Z95.5 Presence of coronary angioplasty implant and graft; Z88.0 Allergy status to penicillin; Z88.1 Allergy status to other antibiotic agents; Z88.2 Allergy status to sulfonamides; Z79.02 Long term (current) use of antithrombotics/antiplatelets; Z79.82 Long term (current) use of aspirin

== ENCOUNTER → 2019-12-29 | Outpatient (CLI) | payer MEDICARE, BC ==
[2019-12-23 16:48] VITALS: BP 121/70
== END ==
LOC: LAB 11:16
DX: R19.7 Diarrhea, unspecified (principal)

== ENCOUNTER 2020-01-13 14:00 | Outpatient (RCR) | payer MEDICARE, BC | END 2020-03-14 | disposition home or self-care (01) | LOC: CARDREHAB | DX: Z48.812 Encounter for surgical aftercare following surgery on the circulatory system (principal); I25.2 Old myocardial infarction; Z95.1 Presence of aortocoronary bypass graft; I48.91 Unspecified atrial fibrillation ==

== ENCOUNTER → 2020-03-05 | Outpatient (CLI) | payer MEDICARE, BC ==
[2020-03-05 10:40] LABS: URINE WBC 0 /hpf (0-3)
[2020-03-05 10:49] LABS: ALBUMIN 3.9 g/dL (3.4-4.8); POTASSIUM 4.4 mmol/L (3.5-5.1)
[2020-03-05 10:50] LABS: CALCIUM 9.3 mg/dL (8.3-10.5)
[2020-03-05 10:52] LABS: TOTAL PROTEIN 7.1 g/dL (6.2-8.1)
[2020-03-05 10:54] LABS: TOTAL BILIRUBIN 0.5 mg/dL (0.2-1.2)
[2020-03-05 11:02] LABS: HEMATOCRIT 48.5 % (42.0-52.0); HEMOGLOBIN 15.5 g/dL (13.5-18.0); RED BLOOD COUNT 5.21 M/mm3 (4.20-5.60); RED CELL DISTRIBUTION WIDTH 16.7 % (11.5-14.5); WHITE BLOOD COUNT 8.6 K/mm3 (4.8-10.8)
== END ==
LOC: LAB 10:30
PROVIDERS: Family Medicine
DX: I25.10 Atherosclerotic heart disease of native coronary artery without angina pectoris (principal); E78.5 Hyperlipidemia, unspecified

== ENCOUNTER → 2020-03-13 | Outpatient (CLI) | payer MEDICARE, BC | LOC: AMSURD 13:05 | DX: I48.0 Paroxysmal atrial fibrillation (principal); I45.2 Bifascicular block ==

== ENCOUNTER → 2020-07-20 | Outpatient (CLI) | payer MEDICARE, BC ==
[2020-07-20 10:07] LABS: HEMATOCRIT 47.1 % (42.0-52.0); HEMOGLOBIN 15.4 g/dL (13.5-18.0); MEAN PLATELET VOLUME 8.4 fl (7.4-10.4); RED BLOOD COUNT 4.85 M/mm3 (4.20-5.60)
[2020-07-20 11:01] LABS: ALBUMIN 3.8 g/dL (3.4-4.8)
[2020-07-20 11:02] LABS: POTASSIUM 5.3 mmol/L (3.5-5.1)
[2020-07-20 11:04] LABS: TOTAL PROTEIN 6.7 g/dL (6.2-8.1)
[2020-07-20 11:06] LABS: TOTAL BILIRUBIN 0.5 mg/dL (0.2-1.2)
== END ==
LOC: LAB 09:44
PROVIDERS: Family Medicine
DX: R14.0 Abdominal distension (gaseous) (principal)

== ENCOUNTER → 2021-05-07 | Outpatient (CLI) | payer MEDICARE, BC ==
[2021-05-07 11:35] LABS: URINE APPEARANCE CLOUDY; URINE COLOR YELLOW
[2021-05-07 11:36] LABS: URINE BILIRUBIN NEGATIVE (NEGATIVE); URINE BLOOD NEGATIVE (NEGATIVE); URINE GLUCOSE NEGATIVE (NEGATIVE); URINE KETONE NEGATIVE (NEGATIVE); URINE LEUKOCYTE ESTERASE TRACE (NEGATIVE); URINE MUCUS PRESENT (NOT PRESENT); URINE NITRATE NEGATIVE (NEGATIVE); URINE PROTEIN(semi-quant) TRACE (NEGATIVE); URINE UROBILINOGEN NORMAL (NORMAL)
== END ==
LOC: LAB 10:45
PROVIDERS: Family Medicine
DX: R06.00 Dyspnea, unspecified (principal)

== ENCOUNTER → 2021-05-13 | Outpatient (CLI) | payer MEDICARE, BC ==
[2021-05-13 16:16] LABS: BASO # 0.03 K/mm3 (0.02-0.10); EOS # 0.17 K/mm3 (0.04-0.40); EOS % 1.9 % (0.0-4.0); HEMATOCRIT 45.3 % (42.0-52.0); HEMOGLOBIN 14.6 g/dL (13.5-18.0); LYMPH# 1.32 K/mm3 (1.50-4.00); MEAN CELL VOLUME 95 fl (78-100); MEAN CORPUSCULAR HEMOGLOBIN 31 pg (27-31); MEAN CORPUSCULAR HGB CONC 32 g/dL (33-37); MEAN PLATELET VOLUME 9.1 fl (7.4-10.4); NEU # 6.35 K/mm3 (1.40-6.50); PLATELET COUNT 288 K/mm3 (130-400); RED BLOOD COUNT 4.78 M/mm3 (4.20-5.60); RED CELL DISTRIBUTION WIDTH 14.1 % (11.5-14.5); WHITE BLOOD COUNT 8.9 K/mm3 (4.8-10.8)
== END ==
LOC: LAB 15:51
PROVIDERS: Family Medicine
DX: M25.532 Pain in left wrist (principal)

== ENCOUNTER → 2021-10-17 | Outpatient (CLI) | payer MEDICARE, BC ==
[~2021-10-17] VITALS: Ht 154.9 cm; Wt 53.1 kg
[2021-10-17 15:05] VITALS: BP 114/74
== END ==
LOC: AMSURD 14:51
DX: E29.1 Testicular hypofunction (principal)